=== PATIENT | female | born 1990 | race Caucasian/White ===

== ENCOUNTER 2017-05-30 12:26 | Emergency (ER) | payer OTHER ==
[2017-05-30 13:10] VITALS: BP 124/71
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
--- NOTE | 2017-05-30 13:50 | RAD ---
INDICATION: Right ankle injury. TECHNIQUE: 3 views of the right ankle were obtained. FINDINGS: There is soft tissue swelling present along the medial aspect of the ankle. No fracture is seen. Joint spaces appear maintained. IMPRESSION: SOFT TISSUE SWELLING, NO FRACTURE IS SEEN. IF THE PATIENT'S SYMPTOMS PERSIST, RECOMMEND FOLLOW-UP IMAGING.
== END 2017-05-30 14:12 | disposition home or self-care (01) ==
LOC: UCCORT 12:26
DX: T24.201A Burn of second degree of unspecified site of right lower limb, except ankle and foot, initial encounter (principal); T21.22XA Burn of second degree of abdominal wall, initial encounter; T24.301A Burn of third degree of unspecified site of right lower limb, except ankle and foot, initial encounter; T31.0 Burns involving less than 10% of body surface; V29.3XXA Motorcycle rider (driver) (passenger) injured in unspecified nontraffic accident, initial encounter; F17.210 Nicotine dependence, cigarettes, uncomplicated; S90.01XA Contusion of right ankle, initial encounter
CPT/HCPCS: 99212; G0463

== ENCOUNTER 2017-06-12 15:50 | Emergency (ER) | payer OTHER ==
[2017-06-12 16:02] VITALS: BP 120/79
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
== END 2017-06-12 16:46 | disposition home or self-care (01) ==
LOC: UCCORT 15:50
DX: T24.211D Burn of second degree of right thigh, subsequent encounter (principal); T79.8XXD Other early complications of trauma, subsequent encounter; L03.115 Cellulitis of right lower limb; B95.62 Methicillin resistant Staphylococcus aureus infection as the cause of diseases classified elsewhere; X19.XXXD Contact with other heat and hot substances, subsequent encounter; F17.210 Nicotine dependence, cigarettes, uncomplicated
CPT/HCPCS: 87070; 87077; 87186; 87205; 87640; 87641; 99212; G0463

== ENCOUNTER 2017-11-28 15:16 | Emergency (ER) | payer OTHER ==
[2017-11-28 15:44] VITALS: BP 107/75
--- NOTE | 2017-11-28 15:59 | UC ---
UC Dental HPI - HPI Summary HPI Summary: 27 yo female with left jaw swelling and pain x 1-2 days has a bad tooth there no fever/chills - History of Current Complaint Chief Complaint: UCDentalProblem Stated Complaint: LEFT SIDE OF FACE SWOLLEN Time Seen by Provider: 11/28/17 15:43 Hx Obtained From: Patient Hx Last Menstrual Period: unknown, mirena Onset/Duration: Gradual Onset Severity: Mild Pain Intensity: 2 Pain Scale Used: 0-10 Numeric Aggravating Factor(s): Chewing Alleviating Factor(s): OTC Meds Related History: Swelling - Allergies/Home Medications Allergies/Adverse Reactions: Allergies Allergy/AdvReac Type Severity Reaction Status Date / Time No Known Allergies Allergy Verified 11/28/17 15:41 PMH/Surg Hx/FS Hx/Imm Hx Previously Healthy: Yes Other History Of: Hepatitis C - hx opiate abuse - Surgical History Surgical History: Yes Surgery Procedure, Year, and Place: 08/2015 - Family History Known Family History: Positive: Hypertension - Social History Alcohol Use: Occasionally Substance Use Type: None, Other Substance Use Comment - Amount & Last Used: opiates/none in 2 years Smoking Status (MU): Heavy Every Day Tobacco Smoker Type: Cigarettes Amount Used/How Often: 7-8 cigarettes daily Length of Time of Smoking/Using Tobacco: Since Age 13 Have You Smoked in the Last Year: Yes - Immunization History Most Recent Influenza Vaccination: Not the 2016/2017 Season Most Recent Tetanus Shot: ~2014 Review of Systems Constitutional: Negative Skin: Negative Eyes: Negative ENT: Dental Pain Respiratory: Negative Cardiovascular: Negative Gastrointestinal: Negative Genitourinary: Negative Motor: Negative Neurovascular: Negative Musculoskeletal: Negative Neurological: Negative Psychological: Negative Is Patient Immunocompromised?: No All Other Systems Reviewed And Are Negative: Yes Physical Exam Triage Information Reviewed: Yes Appearance: Well-Appearing, No Pain Distress, Well-Nourished Vital Signs: Initial Vital Signs Temp 98.3 F 11/28/17 15:39 Pulse 73 11/28/17 15:39 Resp 16 11/28/17 15:39 BP 107/75 11/28/17 15:39 Pulse Ox 99 11/28/17 15:39 Vital Signs Reviewed: Yes Eyes: Positive: Conjunctiva Clear ENT: Negative: Nasal congestion, Nasal drainage, Tonsillar swelling, Tonsillar exudate, Trismus, Muffled voice Dental Exam: Other - see image Neck: Positive: Supple, Nontender, No Lymphadenopathy Respiratory: Positive: Lungs clear, Normal breath sounds, No respiratory distress Cardiovascular: Positive: RRR, No Murmur Musculoskeletal: Positive: ROM Intact, No Edema Dental Complaint Course/Dx - Differential Dx/Diagnosis Provider Diagnoses: dental abscess Discharge - Discharge Plan Condition: Stable Disposition: HOME Prescriptions: Penicillin VK 500 MG TAB(NF) [Penicillin VK 500 mg Tab] 500 mg PO QID #28 tab Patient Education Materials: Dental Abscess (ED) Referrals: SAIKNA Quintanilla [Primary Care Provider] - Additional Instructions: heat advil or aleve recheck for new or worsening symptoms see your dentist early in the week Images Head: 1 - swollen Dental: 1 - gum swollen, afew absent teeth
== END 2017-11-28 16:02 | disposition home or self-care (01) ==
LOC: UCCORT 15:16
DX: K04.7 Periapical abscess without sinus (principal); F17.210 Nicotine dependence, cigarettes, uncomplicated
CPT/HCPCS: 99212; G0463

== ENCOUNTER 2018-08-28 13:23 | Emergency (ER) | payer OTHER ==
[2018-08-28 14:33] VITALS: BP 103/85
--- NOTE | 2018-08-28 15:03 | UC ---
Throat Pain/Nasal Tye HPI - HPI Summary HPI Summary: 28 year old female presents with 2 week history of right ear pain and fullness, nasal congestion, sinus congestion, green nasal discharge, post-nasal drip, and a productive cough for green sputum. Associated with some mild decrease in hearing to right ear, and feeling "hot then cold". Denies fever, chills, sore throat, chest pain, shortness of breath, dizziness, vertigo, abdominal pain, nausea, or vomiting. Patient is a smoker. - History of Current Complaint Chief Complaint: UCRespiratory Stated Complaint: EAR ACHE/COUGH Time Seen by Provider: 08/28/18 14:27 Hx Obtained From: Patient Hx Last Menstrual Period: unknown, mirena Onset/Duration: Gradual Onset, Lasting Weeks - 2 Severity: Mild Pain Intensity: 2 Cough: Productive Associated Signs & Symptoms: Positive: Sinus Discomfort, Nasal Discharge. Negative: Dysphagia, Wheezing, Fever, Vomiting, Rash - Allergies/Home Medications Allergies/Adverse Reactions: Allergies Allergy/AdvReac Type Severity Reaction Status Date / Time No Known Allergies Allergy Verified 08/28/18 14:26 Home Medications: Home Medications Chlorphenir/Phenyleph/Aspirin [Sharyn-[place] Plus Cold 2-7.8-325 mg] 1 tab PO DAILY 08/28/18 [History Confirmed 08/28/18] PMH/Surg Hx/FS Hx/Imm Hx Previously Healthy: Yes Other History Of: Hepatitis C - hx opiate abuse - Surgical History Surgical History: Yes Surgery Procedure, Year, and Place: 08/2015 - Family History Known Family History: Positive: Hypertension - Social History Occupation: Employed Full-time Lives: With Family Alcohol Use: Rare Substance Use Type: Marijuana Substance Use Comment - Amount & Last Used: occasional Smoking Status (MU): Heavy Every Day Tobacco Smoker Type: Cigarettes Amount Used/How Often: 1/2 PPD Length of Time of Smoking/Using Tobacco: Since Age 13 Have You Smoked in the Last Year: Yes - Immunization History Most Recent Influenza Vaccination: Not the 2017/2018 Season Most Recent Tetanus Shot: ~2014 Review of Systems All Other Systems Reviewed And Are Negative: Yes Constitutional: Positive: Fatigue. Negative: Fever, Chills Skin: Negative: Rash Eyes: Negative: Drainage, Eye Redness ENT: Positive: Ear Ache, Nasal Discharge, Sinus Congestion. Negative: Sore Throat Respiratory: Positive: Cough. Negative: Shortness Of Breath Cardiovascular: Negative: Palpitations, Chest Pain Gastrointestinal: Negative: Abdominal Pain, Vomiting, Nausea Is Patient Immunocompromised?: No Physical Exam - Summary Physical Exam Summary: GENERAL APPEARANCE: Well developed, well nourished, alert and cooperative, and appears to be in no acute distress. EYES: Conjunctiva clear. No discharge. EARS: Hearing grossly intact. Left TM dull. Right external auditory canal with cerumen impaction. TM not visualized. NOSE: Nasal congestion. No discharge noted. Maxillary sinus tenderness. THROAT: Oral cavity and pharynx normal. No inflammation, swelling, exudate, or lesions. Teeth and gingiva in good general condition. NECK: Neck supple, non-tender without lymphadenopathy. CARDIAC: Normal S1 and S2. No S3, S4 or murmurs. Rhythm is regular. There is no peripheral edema, cyanosis or pallor. Extremities are warm and well perfused. Capillary refill is less than 2 seconds. LUNGS: Clear to auscultation and percussion without rales, rhonchi, wheezing or diminished breath sounds. Loose, non-productive cough. ABDOMEN: Positive bowel sounds. Soft, nondistended, nontender. No guarding or rebound. No masses or hepatosplenomegally. MUSKULOSKELETAL: ROM intact to all extremities. No joint erythema or tenderness. Normal muscular development. Normal gait. EXTREMITIES: No edema. Peripheral pulses intact. SKIN: Skin normal color, texture and turgor with no lesions or eruptions. Triage Information Reviewed: No Vital Signs: Initial Vital Signs Temp 99.1 F 08/28/18 14:27 Pulse 86 08/28/18 14:27 Resp 16 08/28/18 14:27 BP 103/85 08/28/18 14:27 Pulse Ox 99 08/28/18 14:27 Vital Signs Reviewed: No Re-Evaluation - Re-Evaluation First Eval Re-Evaluation Time: 15:20 Change: Improved Comment: Post-irrigation right ear evaluation: RN reports large amount of hard cerumen removed from ear. Patient reports improved hearing. Mild erythema of the external auditory canal. TM intact, opaque, with good cone of light. Throat Pain/Nasal Course/Dx - Course Course Of Treatment: 28 year old female presents with 2 week history of right ear pain and fullness, nasal congestion, sinus congestion, green nasal discharge , post-nasal drip, and a productive cough for green sputum. Associated with some mild decrease in hearing to right ear, and feeling "hot then cold". Denies fever, chills, sore throat, chest pain, shortness of breath, dizziness, vertigo , abdominal pain, nausea, or vomiting. Initial exam revealed left TM dullness, right external auditory canal with cerumen impaction, nasal congestion, maxillary sinus tenderness, and loose non-productive cough. Right cerumen impaction was cleared with irrigation. Right TM intact, opaque, with good cone of light. Her history and exam are consistent with an acute sinusitis. Considering duration of symptoms will treat with 10 day course of Augmentin and symptomatic care. She is to follow up with her PCP in 7 days if no improvement in symptoms. Warning symptoms reviewed. Verbalizes understanding and agrees with POC. - Differential Dx/Diagnosis Differential Diagnosis/HQI/PQRI: Otitis Media, Sinusitis, URI Provider Diagnosis: Acute sinusitis Discharge - Sign-Out/Discharge Documenting (check all that apply): Patient Departure All imaging exams completed and their final reports reviewed: No Studies - Discharge Plan Condition: Stable Disposition: HOME Prescriptions: Amoxicillin/Clavulanate TAB* [Augmentin TAB 875*] 875 mg PO BID #20 tab Fluticasone NASAL SPRAY 50MCG* [Flonase NASAL SPRAY 50MCG*] 2 spray BOTH NARES DAILY #1 btl Patient Education Materials: Sinusitis (ED) Referrals: No Primary Care Phys,NOPCP [Primary Care Provider] - Additional Instructions: Your history and exam are consistent with a sinus infection. considering the duration of your symptoms we will treat with an antibiotic. Start Augmentin 1 tab twice a day for 10 days. Take with food to avoid upset stomach. Be sure to complete the entire prescription even if you are feeling better. Drink plenty of fluids to avoid dehydration especially if you are running any fever. Use a saline rinse kit such as Neti Pot or NeilMed at least twice a day to help thin secretions and promote drainage of the sinuses. Use fluticasone (Flonase) nasal spray 2 sprays each nostril once daily. Take over the counter acetaminophen (Tylenol) or ibuprofen (Advil, Motrin) according to directions as needed for pain or fever. Follow up with your primary care provider in 7 days if symptoms persist. Seek immediate medical attention in the emergency room if you have fever greater than 100.5 F despite taking acetaminophen or ibuprofen, have chest pain , difficulty breathing, are unable to swallow, or have any worsening of symptoms. - Billing Disposition and Condition Condition: STABLE Disposition: Home - Attestation Statements Provider Attestation: Per institutional requirements, I have reviewed the chart, however, I was not consulted specifically or made aware of this patient by the midlevel provider. I did not personally evaluate, interact with , or disposition this patient.
== END 2018-08-28 15:28 | disposition home or self-care (01) ==
LOC: UCCORT 13:23
DX: J01.90 Acute sinusitis, unspecified (principal); F17.210 Nicotine dependence, cigarettes, uncomplicated
CPT/HCPCS: 99213; G0463

== ENCOUNTER 2018-12-15 15:22 | Emergency (ER) | payer OTHER ==
[2018-12-15 15:34] VITALS: BP 115/77
[2018-12-15 15:45] LABS: Influenza B Molecular POSITIVE (Negative)
--- NOTE | 2018-12-15 15:55 | UC ---
Respiratory Complaint HPI - HPI Summary HPI Summary: 28 yo female with 24 hr hx of f/c, nausea, diarheas, cough and runny nose. JOHNSON and myalgias no cp or sob - History of Current Complaint Chief Complaint: UCGeneralIllness Stated Complaint: FLU SYMP Time Seen by Provider: 12/15/18 15:35 Hx Obtained From: Patient Hx Last Menstrual Period: unknown, mirena Onset/Duration: Gradual Onset, Lasting Hours Timing: Constant Severity Initially: Mild Severity Currently: Moderate Pain Intensity: 5 Pain Scale Used: 0-10 Numeric Character: Cough: Nonproductive Aggravating Factors: Nothing Alleviating Factors: Nothing Associated Signs And Symptoms: Positive: Fever, Chills, Nasal Congestion, Sinus Discomfort - Allergies/Home Medications Allergies/Adverse Reactions: Allergies Allergy/AdvReac Type Severity Reaction Status Date / Time No Known Allergies Allergy Verified 12/15/18 15:34 Home Medications: Home Medications Acetaminophen TAB* [Tylenol TAB*] 325 mg PO Q4H PRN 12/15/18 [History Confirmed 12/15/18] D-Methorphan/PE/Acetaminophen [Theraflu Expressmax Day Caplet] 1 each PO DAILY 12/15/18 [History Confirmed 12/15/18] PMH/Surg Hx/FS Hx/Imm Hx Previously Healthy: Yes Other History Of: Hepatitis C - hx opiate abuse - Surgical History Surgical History: Yes Surgery Procedure, Year, and Place: 08/2015 - Family History Known Family History: Positive: Hypertension - Social History Alcohol Use: Rare Substance Use Type: Marijuana Substance Use Comment - Amount & Last Used: occasional Smoking Status (MU): Heavy Every Day Tobacco Smoker Type: Cigarettes Amount Used/How Often: 1/2 PPD Length of Time of Smoking/Using Tobacco: Since Age 13 Have You Smoked in the Last Year: Yes - Immunization History Most Recent Influenza Vaccination: Not the 2017/2018 Season Most Recent Tetanus Shot: ~2014 Review of Systems All Other Systems Reviewed And Are Negative: Yes Constitutional: Positive: Fever, Chills, Fatigue ENT: Positive: Sore Throat, Nasal Discharge, Sinus Congestion Respiratory: Positive: Cough Cardiovascular: Positive: Negative Gastrointestinal: Positive: Diarrhea, Nausea Genitourinary: Positive: Negative Motor: Positive: Negative Neurovascular: Positive: Negative Musculoskeletal: Positive: Myalgia Neurological: Positive: Headache Psychological: Positive: Negative Physical Exam Triage Information Reviewed: Yes Appearance: Well-Appearing, No Pain Distress, Well-Nourished Vital Signs: Initial Vital Signs Temp 98.2 F 12/15/18 15:32 Pulse 88 12/15/18 15:32 Resp 16 12/15/18 15:32 BP 115/77 12/15/18 15:32 Pulse Ox 100 12/15/18 15:32 Vital Signs Reviewed: Yes Eyes: Positive: Conjunctiva Clear ENT: Positive: Hearing grossly normal, Pharynx normal. Negative: Nasal congestion, Nasal drainage, Tonsillar swelling, Tonsillar exudate, Dental tenderness, Sinus tenderness, Uvula midline Neck: Positive: Supple, Nontender, No Lymphadenopathy Respiratory: Positive: Lungs clear, Normal breath sounds, No respiratory distress, No accessory muscle use Cardiovascular: Positive: RRR, No Murmur Musculoskeletal: Positive: ROM Intact, No Edema Neurological: Positive: Alert Psychological Exam: Normal Skin Exam: Normal Respiratory Course/Dx - Differential Dx/Diagnosis Provider Diagnosis: Influenza B Discharge - Sign-Out/Discharge Documenting (check all that apply): Patient Departure All imaging exams completed and their final reports reviewed: No Studies - Discharge Plan Condition: Stable Disposition: HOME Prescriptions: Oseltamivir CAP* [Tamiflu CAP*] 75 mg PO BID #10 cap Promethazine TAB* [Phenergan TAB*] 25 mg PO Q6H PRN #6 tab PRN Reason: Nausea Patient Education Materials: Influenza (ED) Forms: *Work Release Referrals: Arturo Modi MD [Primary Care Provider] - - Billing Disposition and Condition Condition: STABLE Disposition: Home
== END 2018-12-15 16:04 | disposition home or self-care (01) ==
LOC: UCCORT 15:22
DX: J10.1 Influenza due to other identified influenza virus with other respiratory manifestations (principal); F17.210 Nicotine dependence, cigarettes, uncomplicated
CPT/HCPCS: 99212; G0463